=== PATIENT | female | born 1965 | race Caucasian/White ===

== ENCOUNTER 2020-12-07 21:57 | Emergency (ER) | payer OTHER ==
[~2020-12-07] VITALS: Ht 165.1 cm; Wt 61.2 kg
[2020-12-07] MEDS ORDERED: CRESTOR5 MG PO (22:12)
[2020-12-07] MEDS ORDERED: NORVASC 2.5 MG2.5 M1 PO (22:12)
[2020-12-07] MEDS ORDERED: ZYRTEC10 M4 PO (22:12)
[2020-12-07 22:59] VITALS: BP 133/88
== END 2020-12-07 22:59 | disposition home or self-care (01) ==
LOC: M.ERS 21:57
DX: H57.11 Ocular pain, right eye (principal); I10 Essential (primary) hypertension; Z88.0 Allergy status to penicillin